=== PATIENT | male | born 1960 | race Hispanic/Latino ===

== ENCOUNTER 2018-01-09 20:59 | Inpatient (IN) | payer MEDICAID ==
[2018-01-09 21:47] VITALS: BMI 19.9
[2018-01-09] MEDS ORDERED: Magnesium Hydroxide Susp 30 ml UD PO PRN (21:56)
[2018-01-09] MEDS ORDERED: Alum-Mag Hydrox-Simethicone Susp (30 mL) PO PRN (21:56)
[2018-01-09] MEDS ORDERED: Bismuth Subsalicylate 262 mg/15 ml Sus (240 ml) PO PRN (21:56)
[2018-01-09] MEDS ORDERED: DiphenhydrAMINE 50 mg/ml Inj IM PRN (22:01)
--- NOTE | 2018-01-09 22:08 | PCM.BM ---
Treatment assets and liabiliti Patient Assests: adapts well, cooperative, negotiates basic needs Patient Liabilities: live alone, poor support system, medical problems - Milieu Protocol Maintain good personal hygiene: daily Encourage regular showers, daily Remind patient to perform daily oral care, every shift Assist patient to perform ADL's Conduct patient checks and document Observation sheet: Q15 minutes Maintain personal safety: every shift Educate patient to report safety concerns to staff, every shift Monitor environment for contraband/sharps Medication safety: Monitor for expected outcome, potential side effects: every shift, Assess barriers to learning: every shift, Assess readiness for medication education: every shift
--- NOTE | 2018-01-09 22:13 | PCM.BM ---
<Joel Regalado - Last Filed: 01/09/18 22:11> Treatment Plan Problems - Problems identified on initial assessmt Hopelessness/Helplessness Date Initiated: 01/09/18 Time Initiated: 22:12 Assessment reference: NA Status: Active Feelings of Worthlessness Date Initiated: 01/09/18 Time Initiated: 22:12 Assessment reference: NA Status: Active Treatment assets and liabiliti Patient Assests: adapts well, cooperative, negotiates basic needs Patient Liabilities: live alone, financial problems, poor support system, medical problems - Milieu Protocol Maintain good personal hygiene: daily Encourage regular showers, daily Remind patient to perform daily oral care, every shift Assist patient to perform ADL's Conduct patient checks and document Observation sheet: Q15 minutes Maintain personal safety: every shift Educate patient to report safety concerns to staff, every shift Monitor environment for contraband/sharps Medication safety: Monitor for expected outcome, potential side effects: every shift, Assess barriers to learning: every shift, Assess readiness for medication education: every shift <Shefali Del Rosario - Last Filed: 01/10/18 08:52> - Diagnosis (1) Major depressive disorder Status: Acute Interventions: Psychoeducation, medication management, individual and group therapy 01/10/18 08:52 <Lottie Marie M - Last Filed: 01/12/18 16:18> Family Contact Family involvement: Famliy/SO not involved Family contact comment: Pt reported no family involvement. - Goals for Treatment Patient goals for treatment: Pt to be encouraged to attend activity and clinical groups 3-5x per week to identify at least 2 contributing factors to depression and suicide attempt. Psycho-education to be provided to patient/ family regarding benefits of medications and treatment adherence. Pt to be encouraged to participate in group milieu to develop effective coping skills to reduce depression and free of suicide ideation. Coordinate discharge resource needs by providing referral for psychiatric treatment follow up in the community. Discharge/Continuing Care - Education Needs Education Needs: Patient Medication, Patient Diagnosis/Disease Process, Patient Coping Skills, Patient Placement options, Patient Community resources, Patient Activities of Daily Living, Patient Health Practices/Safety, Patient Personal Hygiene/Grooming, Patient Aftercare Safety Plan - Discharge Discharge Criteria: Tolerates medication w/o severe side effects, Free of Suicidal thoughts, Free of agitation, Normal sleep pattern, Ability to care for self, Reduction of target symptoms Discharge to:: Nursing Home - Additional Comments 01/12/18 16:14 Pt seen ad discussed in team meeting. Pt reported reason for hospitalization as "suicide thoughts and indecencies." Pt reported SI due to "life in general." Pt reported that he is hopeful for the future if his depression is treated properly. Pt reported that homelessness is his primary stressors. Pt's medications reviewed and discussed at length. Pt's social and emotional support reviewed and discussed. No support system. Tx plan reviewed and discussed. Pt is agreeable. [employer] Consultant will continue to follow case. - Treatment Team Participation Discussed with Family/SO: No Was Patient/Family/SO present at Treatment Team Meeting: Yes
[2018-01-09] MEDS ORDERED: Albuterol-Ipratrop 3 mg / 0.5 (3 ml) UD IH PRN (23:39)
[2018-01-10 06:49] LABS: ALB/GLOB RATIO 1.1 (1.0-2.1); ALBUMIN 3.7 g/dL (3.5-5.0); ALT/SGPT 56 U/L (21-72); AST/SGOT 40 U/L (17-59); BLOOD UREA NITROGEN 22 mg/dl (9-20); CALCIUM 9.6 mg/dL (8.4-10.2); GFR AFRICAN-AMERICAN > 60; GFR NON-AFRICAN AMERICAN > 60; HDL CHOLESTEROL 43 MG/DL (30-70)
[2018-01-10 07:00] LABS: LDL CHOLESTEROL 99 mg/dL (0-129)
[2018-01-10 07:03] LABS: T4 14.3 ug/dl (5.5-11.0)
[2018-01-10 07:22] LABS: IRON 169 ug/dL (49-181)
[2018-01-10 07:32] LABS: % IRON SATURATION 41 % (20-55); TOTAL IRON BINDING CAPACITY 416 ug/dL (250-450)
[2018-01-10 07:37] LABS: HEMOGLOBIN 14.4 g/dL (12.0-18.0); MEAN CORPUSCULAR HGB CONC 34.4 g/dL (33.0-37.0); RBC 4.65 Mil/uL (4.40-5.90); RED CELL DISTRIBUTION WIDTH 13.6 % (11.5-14.5); WHITE BLOOD COUNT 8.7 K/uL (4.8-10.8)
--- NOTE | 2018-01-10 08:34 | PCM.PSYCH ---
Initial Psychiatric Evaluation - Initial Psychiatric Evaluation Type of Admission: Voluntary Legal Status: Capacity Chief Complaint (in patient's own words): "I was having suicidal thoughts." Patient's Reaction to Hospitalization: HPI: 57 yo undomiciled male w/ h/o depression presents w/ suicidal ideation to harm himself w/ plan to hang himself, poor appetite, poor sleep, depressed mood and hopelessness in the context of the stress of being homeless. Patient is able to contract for safety at this time. He reports that he has not been complaint with antidepressant treatment in the past. He was agreeable to taking Zoloft. r/b/se were reviewed. No symptoms of maxwell/AH/VH/paranoia/ delusions. PPHx: History of psychiatric admission 2 months ago at [facility] for suicidal ideation. He reports history of suicide attempts, but is vague about the details. PMHx: H/o lung biopsy which he states was negative and was actually PNA, now resolved; he denies other acute medical issues ALL: NKDA SHx: Denies drug/etoh use; although past records indicate that patient has used opioids in the past; smokes 10 cigarettes a day (patient was offered the nicotine patch, but he declined). Unemployed, used to work in [place]; homeless. Current Medications: Active Medications Generic Name Dose Route Start Last Admin Trade Name Adolfoq PRN Reason Stop Dose Admin Acetaminophen 650 mg 01/09/18 21:56 Tylenol 325mg Tab PO Q4 PRN Pain, moderate (4-7) Al Hydrox/Mg Hydrox/Simethicone 30 ml 01/09/18 21:56 Maalox Plus 30 Ml PO Q4 PRN Dyspepsia Albuterol/Ipratropium 3 ml 01/09/18 23:39 Duoneb 3 Mg/0.5 Mg (3 Ml) Ud IH RQ6 PRN SOB Amoxicillin/Clavulanate Potassium 1 tab 01/10/18 09:00 Augmentin 875 Mg-125 Mg Tab PO BID MERRY Protocol Bismuth Subsalicylate 524 mg 01/09/18 21:56 Pepto-Bismol PO Q4 PRN Diarrhea Diphenhydramine HCl 50 mg 01/09/18 22:01 Benadryl IM Q6 PRN Extrapyramidal S/S Unable PO Diphenhydramine HCl 50 mg 01/09/18 22:01 Benadryl PO Q6 PRN Extrapyramidal Symptoms Diphenhydramine HCl 50 mg 01/09/18 22:01 Benadryl PO HS PRN Sleep Haloperidol 5 mg 01/09/18 22:01 Haldol PO Q4 PRN Agitation Haloperidol Lactate 5 mg 01/09/18 22:01 Haldol IM Q4 PRN Agitation, Unable to Take PO Lorazepam 2 mg 01/09/18 22:01 Ativan IM Q4 PRN Anxiety/Agitation,Unable PO Lorazepam 2 mg 01/09/18 22:01 Ativan PO Q4 PRN Anxiety/Agitation Magnesium Hydroxide 30 ml 01/09/18 21:56 Milk Of Magnesia PO HS PRN Constipation Nicotine 1 patch 01/10/18 09:00 Nicoderm Cq TD DAILY MERRY Pantoprazole Sodium 40 mg 01/10/18 09:00 Protonix Ec Tab PO DAILY MERRY Tramadol HCl 50 mg 01/09/18 23:41 Ultram PO Q4 PRN Pain, moderate (4-7) Tramadol HCl 100 mg 01/09/18 23:42 Ultram PO Q4 PRN Pain, severe (8-10) Past Psychiatric History - Past Psychiatric History Previous Treatment History: Inpatient Pertinent Medical Hx (Current Medical&Sleep Prob, Allergies): Allergies Allergy/AdvReac Type Severity Reaction Status Date / Time No Known Allergies Allergy Verified 01/09/18 21:52 Albuterol/Ipratropium [Duoneb 3 MG/3 Ml-0.5 MG/3 Ml 3 Ml] 3 ml IH Q6 PRN Amoxicillin/Potassium Clav [Amox-Clav 875-125 mg Tablet] 1 tab PO BID 01/09/18 HYDROmorphone [Dilaudid] 0.5 mg IV Q6 PRN 01/09/18 Nicotine [Nicoderm Cq] 14 mg TD DAILY 01/09/18 Pantoprazole [Protonix Inj] 40 mg IV DAILY 01/09/18 Sertraline [Zoloft] 50 mg PO DAILY 01/09/18 Review of Systems - Psychiatric Psychiatric: As Per HPI, Abnormal Sleep Pattern, Anhedonia, Anxiety, Change in Appetite, Depression, Difficulty Concentrating, Hopelessness, Irritability, Mood Swings, Suicidal Ideation Mental Status Examination - Personal Presentation Personal Presentation: Looks stated age - Affect Affect: Constricted, Depressed - Motor Activity Motor Activity: Calm - Reliability in Providing Information Reliability in Providing Information: Good - Speech Speech: Organized - Mood Mood: Depressed - Formal Thought Process Formal Thought Process: No Impairment - Hallucinations/Delusions Additional comments: NO AH/VH/paranoia/delusions - Obsessions/Compulsions Obsessions: No Compulsions: No - Cognitive Functions Orientation: Person, Place, Situation, Time Sensorium: Alert Attention/Concentration: Attentive Estimate of Intelligence: Average Judgement: Intact, as evidence by: Insight regarding need for hospitalization Memory: Recent intact, as evidence by: Ability to recall events of the day, Recent intact, as evidence by: 3/3 object recall, Remote intact, as evidenced by : Abilit to recall sig. life events, Remote intact, as evidenced by: Ability to recall historical events - Risk Risk: Suicidal - Strength & Assets Inventory Strength & Assets Inventory: Cooperative - Limitations Limitations: Other (Homeless, Poverty) DSM 5 DX - DSM 5 DSM 5 Diagnosis: Major Depressive Disorder - Recommended/Plan of Treatment Treatment Recommendations and Plan of Treatment: Major Depressive Disorder; patient needs acute inpatient admission for treatment , safety and stabilization -Admit to geriatric psychiatry unit -Individual and group therapy -Start Zoloft 50 mg PO Daily -Medicine consult -Patient declined smoking cessation -Disposition planning Projected ELOS: 4-7 days Discharge Plan and Discharge Criteria: Discharge patient when he is psychiatrically stable - Smoking Cessation Smoking Cessation Initiated: No Reason for not providing: Patient declined
[2018-01-10] MEDS: Pantoprazole 40 mg EC Tab PO SCH (09:55)
[2018-01-10] MEDS: Amoxicillin-Clav 875-125 mg Tab PO SCH ×2 (09:55→19:52)
--- NOTE | 2018-01-10 11:01 | CP.PCM.HP ---
<Chaka Esquivel - Last Filed: 01/10/18 14:45> History of Present Illness - History of Present Illness History of Present Illness: Tomas is a pleasant 57 yo M with pmhx of depression presented to [facility] via transfer from [place] for worsening depression. He reports a history of multiple attempts at suicide and "I want to get help". He reports diagnosis of L sided pneumonia with L lung biopsy at [place]. Denies CP/SOB, cough/N/V/ dizziness Currently, he denies active plan for suicide. pmhx: depression psurg: L lung bx 12/2017 famhx: none soc: smokes 10 cigaretts/day for 30 years. denies alcohol or illicit drugs NKDA Meds: reports Dilaudid 25 mg x 4 days at [place] Present on Admission - Present on Admission Any Indicators Present on Admission: No History of DVT/PE: No History of Uncontrolled Diabetes: No Review of Systems - Constitutional Constitutional: As Per HPI Past Patient History - Past Social History Smoking Status: Heavy Smoker > 10 Cigarettes Daily (x 30years) Alcohol: None Drugs: Denies - CARDIAC Hx Cardiac Disorders: No - PULMONARY Hx Pneumonia: Yes - HEMATOLOGICAL/ONCOLOGICAL Hx Hepatitis C: Yes - PSYCHIATRIC Hx Depression: Yes Hx Substance Use: (denies but has history as per report) - SURGICAL HISTORY Other/Comment: lung biopsy 12/2017 - ANESTHESIA Hx Anesthesia: No Hx Anesthesia Reactions: No Meds Allergies/Adverse Reactions: Allergies Allergy/AdvReac Type Severity Reaction Status Date / Time No Known Allergies Allergy Verified 01/09/18 21:52 Physical Exam - Eye Exam Eye Exam: EOMI - Neck Exam Neck exam: Positive for: Full Rom - Respiratory Exam Respiratory Exam: Clear to Auscultation Bilateral, NORMAL BREATHING PATTERN. absent: Wheezes - Cardiovascular Exam Cardiovascular Exam: REGULAR RHYTHM, +S1, +S2 - GI/Abdominal Exam GI & Abdominal Exam: Normal Bowel Sounds, Soft. absent: Tenderness - Neurological Exam Neurological exam: Alert, CN II-XII Intact, Oriented x3 - Psychiatric Exam Psychiatric exam: Normal Affect, Normal Mood Results - Vital Signs Recent Vital Signs: Last Vital Signs Temp 98.1 F 01/10/18 05:52 Pulse 61 01/10/18 05:52 Resp 20 01/10/18 05:52 BP 99/56 L 01/10/18 05:52 Pulse Ox - Labs Result Diagrams: 01/10/18 05:45 01/10/18 05:45 Labs: Laboratory Results - last 24 hr 01/10/18 01/10/18 01/10/18 05:45 05:45 05:45 WBC 8.7 RBC 4.65 Hgb 14.4 Hct 41.8 MCV 90.0 MCH 31.0 MCHC 34.4 RDW 13.6 Plt Count 214 Sodium 144 Potassium 4.1 Chloride 103 Carbon Dioxide 30 Anion Gap 15 BUN 22 H Creatinine 0.7 L Est GFR ( Amer) > 60 Est GFR (Non-Af Amer) > 60 Random Glucose 115 H Calcium 9.6 Iron TIBC % Saturation Ferritin 294.0 Total Bilirubin 0.4 AST 40 ALT 56 Alkaline Phosphatase 98 Total Protein 7.0 Albumin 3.7 Globulin 3.3 Albumin/Globulin Ratio 1.1 Triglycerides 102 Cholesterol 172 LDL Cholesterol Direct 99 HDL Cholesterol 43 Vitamin B12 259 Free T4 1.26 Thyroxine (T4) 14.3 H TSH 3rd Generation 1.93 01/10/18 05:45 WBC RBC Hgb Hct MCV MCH MCHC RDW Plt Count Sodium Potassium Chloride Carbon Dioxide Anion Gap BUN Creatinine Est GFR ( Amer) Est GFR (Non-Af Amer) Random Glucose Calcium Iron 169 TIBC 416 % Saturation 41 Ferritin Total Bilirubin AST ALT Alkaline Phosphatase Total Protein Albumin Globulin Albumin/Globulin Ratio Triglycerides Cholesterol LDL Cholesterol Direct HDL Cholesterol Vitamin B12 Free T4 Thyroxine (T4) TSH 3rd Generation Assessment & Plan - Assessment and Plan (Free Text) Plan: 57 yo M with hx of depression presents for further stabilization of his depression. 1) Major Depresive Disorder - Acute inpatient admission: safety and stabilization - Geriatric psychiatry unit - Zoloft 50 mg PO qDaily 2) PNA - Duoneb PRN: SOB - Augmentin 875mg -125 mg tab - CXR 3) DVT prophylaxis - Pt ambulating. <Román Mirza - Last Filed: 01/10/18 15:28> Results - Vital Signs Recent Vital Signs: Last Vital Signs Temp 98.1 F 01/10/18 05:52 Pulse 61 01/10/18 05:52 Resp 20 01/10/18 05:52 BP 99/56 L 01/10/18 05:52 Pulse Ox - Labs Result Diagrams: 01/10/18 05:45 01/10/18 05:45 Labs: Laboratory Results - last 24 hr 01/10/18 01/10/18 01/10/18 05:45 05:45 05:45 WBC 8.7 RBC 4.65 Hgb 14.4 Hct 41.8 MCV 90.0 MCH 31.0 MCHC 34.4 RDW 13.6 Plt Count 214 Sodium 144 Potassium 4.1 Chloride 103 Carbon Dioxide 30 Anion Gap 15 BUN 22 H Creatinine 0.7 L Est GFR ( Amer) > 60 Est GFR (Non-Af Amer) > 60 Random Glucose 115 H Calcium 9.6 Iron TIBC % Saturation Ferritin 294.0 Total Bilirubin 0.4 AST 40 ALT 56 Alkaline Phosphatase 98 Total Protein 7.0 Albumin 3.7 Globulin 3.3 Albumin/Globulin Ratio 1.1 Triglycerides 102 Cholesterol 172 LDL Cholesterol Direct 99 HDL Cholesterol 43 Vitamin B12 259 Free T4 1.26 Thyroxine (T4) 14.3 H TSH 3rd Generation 1.93 01/10/18 05:45 WBC RBC Hgb Hct MCV MCH MCHC RDW Plt Count Sodium Potassium Chloride Carbon Dioxide Anion Gap BUN Creatinine Est GFR ( Amer) Est GFR (Non-Af Amer) Random Glucose Calcium Iron 169 TIBC 416 % Saturation 41 Ferritin Total Bilirubin AST ALT Alkaline Phosphatase Total Protein Albumin Globulin Albumin/Globulin Ratio Triglycerides Cholesterol LDL Cholesterol Direct HDL Cholesterol Vitamin B12 Free T4 Thyroxine (T4) TSH 3rd Generation
[2018-01-10 17:49] LABS: FOLATE 14.9 ng/mL
[2018-01-11] MEDS: Pantoprazole 40 mg EC Tab PO SCH (08:53)
[2018-01-11] MEDS: Amoxicillin-Clav 875-125 mg Tab PO SCH ×2 (08:53→17:33)
--- NOTE | 2018-01-11 09:00 | PCM.PYCHPN ---
Psychiatric Progress Note - Psychiatric Progress Note Patient seen today, length of contact: Patient evaluated, case discussed with team, chart reviewed Patient Chief Complaint: "I'm depressed." Problems Identified/Issues Discussed: Patient reports that he continues to feel depressed w/ low energy, low motivation and poor appetite. He denies acute suicidal ideation/plan/intent. He denies adverse effects to Zoloft. Psychoeducation provided re: coping strategies to deal with depression and the importance of compliance with treatment, medications and therapy was discussed. Medication Change: No Medical Record Reviewed: Yes Consults ordered or reviewed: Medicine consult Mental Status Examination - Cognitive Function Orientation: Person, Place, Situation, Time Memory: Intact Attention: WNL Concentration: WNL Association: [facility] Fund of Knowledge: [facility] Decription of patient's judgement and insights: Fair I/J - Mood Mood: Depressed - Affect Affect: Constricted, Depressed - Speech Speech: Appropriate, Soft - Formal Thought Process Formal Thought Process: No Impairment Psychotic Thoughts and Behaviors: No AH/VH/paranoia/delusions - Suicidal Ideation Suicidal Ideation: No - Homicidal Ideation Homicidal Ideation: No Goal/Treatment Plan - Goal/Treatment Plan Need for Continued Stay: Remain at risks for inpatient hospitalization, Severe depression anxiety, Discharge may exacerbated symptoms Progress Toward Problem(s) and Goals/Treatment Plan: Major Depressive Disorder; patient needs acute inpatient admission for treatment , safety and stabilization -Individual and group therapy -Continue Zoloft 50 mg PO Daily -Medicine consult -Patient declined smoking cessation -Disposition planning Estimated Date of D/C: 01/14/18 - Smoking Cessation Smoking Cessation Initiated: No Reason for not providing: Patient declined
[2018-01-12] MEDS: Pantoprazole 40 mg EC Tab PO SCH (08:32)
[2018-01-12] MEDS: Amoxicillin-Clav 875-125 mg Tab PO SCH ×2 (08:33→17:49)
--- NOTE | 2018-01-12 11:36 | RAD ---
HISTORY: r/o pneumonia COMPARISON: No prior. TECHNIQUE: Chest PA and lateral FINDINGS: LUNGS: A subtle hazy density seen the low superior left lung zone likely in the left upper lobe superolateral to the left hilum. This may represent an early infiltrate with remaining lung ricci appearing clear. PLEURA: No significant pleural effusion identified. No pneumothorax apparent. CARDIOVASCULAR: Normal. OSSEOUS STRUCTURES: No significant abnormalities. VISUALIZED UPPER ABDOMEN: Normal. OTHER FINDINGS: None. IMPRESSION: Trace patchy infiltrate suspected at the left upper lobe. Follow-up chest radiography is advised following therapy to document resolution of this finding as is difficult to exclude lesion here given its small limited appearance.
--- NOTE | 2018-01-12 12:22 | PCM.PYCHPN ---
Psychiatric Progress Note - Psychiatric Progress Note Patient seen today, length of contact: Patient evaluated, case discussed with team, chart reviewed Patient Chief Complaint: "I'm depressed." Problems Identified/Issues Discussed: Patient reports that he continues to feel depressed. He denies acute suicidal ideation/plan/intent. He denies adverse effects to Zoloft. Psychoeducation provided re: coping strategies to deal with depression and the importance of compliance with treatment, medications and therapy was discussed. Medication Change: No Medical Record Reviewed: Yes Consults ordered or reviewed: Medicine consult Mental Status Examination - Cognitive Function Orientation: Person, Place, Situation, Time Memory: Intact Attention: WNL Concentration: WNL Association: WNL Fund of Knowledge: [facility] Decription of patient's judgement and insights: Fair I/J - Mood Mood: Depressed - Affect Affect: Constricted, Depressed - Speech Speech: Appropriate, Soft - Formal Thought Process Formal Thought Process: No Impairment Psychotic Thoughts and Behaviors: No AH/VH/paranoia/delusions - Suicidal Ideation Suicidal Ideation: No - Homicidal Ideation Homicidal Ideation: No Goal/Treatment Plan - Goal/Treatment Plan Need for Continued Stay: Severe depression anxiety, Discharge may exacerbated symptoms Progress Toward Problem(s) and Goals/Treatment Plan: Major Depressive Disorder; patient needs acute inpatient admission for treatment , safety and stabilization -Individual and group therapy -Continue Zoloft 50 mg PO Daily -Medicine consult -Patient declined smoking cessation -Disposition planning Estimated Date of D/C: 01/14/18
[2018-01-13] MEDS: Amoxicillin-Clav 875-125 mg Tab PO SCH ×2 (08:39→16:33)
[2018-01-13] MEDS: Pantoprazole 40 mg EC Tab PO SCH (08:39)
--- NOTE | 2018-01-13 10:41 | PCM.PYCHPN ---
Psychiatric Progress Note - Psychiatric Progress Note Patient seen today, length of contact: Patient evaluated, case discussed with team, chart reviewed Patient Chief Complaint: "I'm depressed." Problems Identified/Issues Discussed: Patient reports that his mood is improving, but he continues to feel intermittently depressed. We discussed likely discharge tomorrow if he continues to improve clinically. He denies acute suicidal ideation/plan/ intent. He denies adverse effects to Zoloft. Psychoeducation provided re: coping strategies to deal with depression and the importance of compliance with treatment, medications and therapy were discussed. Medication Change: No Medical Record Reviewed: Yes Consults ordered or reviewed: Medicine consult Mental Status Examination - Cognitive Function Orientation: Person, Place, Situation, Time Memory: Intact Attention: WNL Concentration: WNL Association: WNL Fund of Knowledge: [facility] Decription of patient's judgement and insights: Fair I/J - Mood Mood: Depressed - Affect Affect: Constricted, Depressed - Speech Speech: Appropriate - Formal Thought Process Formal Thought Process: No Impairment Psychotic Thoughts and Behaviors: No AH/VH/paranoia/delusions - Suicidal Ideation Suicidal Ideation: No - Homicidal Ideation Homicidal Ideation: No Goal/Treatment Plan - Goal/Treatment Plan Need for Continued Stay: Severe depression anxiety Progress Toward Problem(s) and Goals/Treatment Plan: Major Depressive Disorder -Individual and group therapy -Continue Zoloft 50 mg PO Daily -Medicine consult -Patient declined smoking cessation -Disposition planning Estimated Date of D/C: 01/14/18
[2018-01-13 15:55] VITALS: PULSE 62
[2018-01-14 06:03] VITALS: BP 114/73; RESP 19; TEMP 97.6
[2018-01-14] MEDS: Pantoprazole 40 mg EC Tab PO SCH (09:18)
--- NOTE | 2018-01-14 09:27 | PCM.PYCHDC ---
Mental Status Examination - Mental Status Examination Orientation: Person, Place, Situation, Time Memory: Intact Mood: Neutral Affect: Broad Speech: Appropriate Attention: WNL Concentration: WNL Association: WNL Fund of Knowledge: WNL Formal Thought Process: No Impairment Description of patient's judgement and insight: Fair I/J Psychotic Thoughts and Behaviors: No AH/VH/paranoia/delusions Suicidal Ideation: No Current Homicidal Ideation?: No Discharge Summary - Discharge Note Reason for Hospitalization: HPI: 57 yo undomiciled male w/ h/o depression presents w/ suicidal ideation to harm himself w/ plan to hang himself, poor appetite, poor sleep, depressed mood and hopelessness in the context of the stress of being homeless. Patient is able to contract for safety at this time. He reports that he has not been complaint with antidepressant treatment in the past. He was agreeable to taking Zoloft. r/b/se were reviewed. No symptoms of maxwell/AH/VH/paranoia/ delusions. PPHx: History of psychiatric admission 2 months ago at [facility] for suicidal ideation. He reports history of suicide attempts, but is vague about the details. PMHx: H/o lung biopsy which he states was negative and was actually PNA, now resolved; he denies other acute medical issues ALL: NKDA SHx: Denies drug/etoh use; although past records indicate that patient has used opioids in the past; smokes 10 cigarettes a day (patient was offered the nicotine patch, but he declined). Unemployed, used to work in [place]; homeless. Consultations:: List each consultation separately and include: 1. Reason for request. 2. Findings. 3. Follow-up Consultations: Medicine consult Summary of Hospital Course include:: 1. Description of specific treatment plan utilized for patients during their course of treatmen. 2. Summarize the time- course for resolution of acute symptoms and/or regressed behaviors. 3. Describe issues identified and worked on during hospitalization. 4. Describe medication utilized. 5. Describe medical problems identified and treated. 6. Reassessment of suicide risk Summary of Hospital Course: Patient was admitted to the psychiatry unit. He completed his course of antibiotics for treatment of PNA. He was stabilized on 50 mg PO Daily. Individual and group therapy were provided. No acute SI/HI. Patient is psychiatrically stable for discharge with outpatient follow-up. - Diagnosis (1) Major depressive disorder Current Visit: Yes Status: Resolved - Final Diagnosis (DSM 5) Condition upon Discharge: STABLE DSM 5: Major Depressive Disorder Disposition: HOME/ ROUTINE Follow-up Treatment Plan: -Continue Zoloft 50 mg PO Daily -Patient declined smoking cessation Prescriptions/Medication Reconciliation: Pantoprazole [Protonix EC Tab] 40 mg PO DAILY #30 ect Sertraline [Zoloft] 50 mg PO DAILY #30 tab - Smoking Cessation Smoking Cessation Medication prescribed: No Reason for not providing: Patient declined - Antipsychotic Medications Pt discharged on 2 or more routine antipsychotic medications: No
== END 2018-01-14 14:25 | disposition home or self-care (01) | DRG 426 ==
LOC: H.ER 20:59 → H.ERHOLD 21:32 → H.ER 21:33 → H.STEP 21:35 → UNDOADMIN 21:35 → H.STEP 21:55
PROVIDERS: ADMIT Psychiatry & Neurology Psychiatry; ATTEND Psychiatry & Neurology Psychiatry
PROC: GZHZZZZ Group Psychotherapy (ICD-10-PCS; principal; 2018-01-09)
DX: F32.9 Major depressive disorder, single episode, unspecified (principal); J18.9 Pneumonia, unspecified organism; R45.851 Suicidal ideations; F17.210 Nicotine dependence, cigarettes, uncomplicated; Z59.0 Homelessness